=== PATIENT | male | born 1990 | race Caucasian/White ===

== ENCOUNTER 2019-10-31 15:31 | Outpatient (CLI) | payer OTHER ==
--- NOTE | 2019-11-03 09:47 | MRI Report ---
PROCEDURE: Arthrogram Ankle LT INDICATIONS: ATFL TEAR, PAIN IN LEFT ANKLE CONTRAST: Yes coronal and along the radial Prashant DOTSON and lesia 1175 TECHNIQUE: After the administration of 5 mL of dilute intra-articular Gadolinium contrast into the tibiotalar angi int, sagittal T1 spin echo with and without fat saturation, axial T1 fast spin echo with fat saturati on and T2 fast spin echo with fat saturation, coronal T1 spin echo and T2 fast spin echo with fat sat uration through the ankle. COMPARISON: None. FINDINGS: Image quality: Excellent. Bones and joints: No acute fracture. No suspicious osseous lesion of the midfoot or hindfoot bones is present. Within the medial tibiotalar joint, there are a pair of low signal intensity possible loose bodies me asuring up to 4 mm seen on image . This is also noted on image 18/701. No osteochondral defects. There is diffuse hindfoot and midfoot degenerative spurring and subchondral sclerosis Medial structures: Deltoid ligament intact. Spring ligament intact. Posterior tibialis intact Flexor digitorum longus intact Fluid is adjacent to the posterior tibialis and flexor digitorum longus tendons although fluid demons trates T1 shortening and be related to injection. Flexor hallucis longus intact Posterior tibial neurovascular bundle appears normal within the tarsal tunnel, without extrinsic mass effect. Lateral structures: Anterior talofibular ligament not well seen and presumably ruptured. Calcaneofibular ligament not well seen and may be ruptured. Posterior talofibular ligament intact. Anterior tibiofibular ligament intact. Posterior tibiofibular ligament intact. Peroneus longus normal Peroneus brevis normal. There is fluid surrounding the peroneal tendons, however demonstrates T1 shortening and may be relate d to the injection. Sinus tarsi demonstrates normal fatty signal. Anterior structures: Dorsal talonavicular ligament intact. Tibialis anterior normal Extensor hallucis longus normal. Extensor digitorum longus normal Posterior and plantar structures: Achilles tendon intact. The medial and lateral bands of the plantar fascia are within normal limits. IMPRESSION: Nonvisualized anterior talofibular and calcaneofibular ligaments which suggests rupture, technically age indeterminate, although probably chronic given the absence of adjacent soft tissue edema A pair of low signal suspected loose bodies measuring up to 4 mm within the medial tibiotalar joint s pace. Reviewed by: Prashant Chaudhry MD on 11/03/2019 9:46 AM PDT Approved by: Prashant Chaudhry MD on 11/03/2019 9:46 AM PDT Station ID: [id number]
--- NOTE | 2019-11-03 17:41 | XRAY Report ---
Reason: ATFL TEAR, PAIN IN LEFT ANKLE Procedure Date: 10/31/2019 Accession Number: [id number] / [id number] Procedure: [place] - Arthrogram Needle Placement CPT Code: Final Report FULL RESULT: PROCEDURE: Arthrogram Needle Placement INDICATIONS: ATFL TEAR, PAIN IN LEFT ANKLE CONTRAST: CONTRAST: 3cc Omnipague, FLUOROSCOPY TIME: FLUORO TIME: 10 sec and NUMBER IMAGES: 2 TECHNIQUE: After informed consent had been obtained, the ankle was examined fluoroscopically in the lateral projection, and a site for needle placement chosen for entry into the tibiotalar joint from an anterior approach. Care was taken to locate the dorsalis pedis artery beforehand. The skin was prepped and draped in the usual fashion, and 1% Xylocaine infiltrated from skin down to joint capsule. A hypodermic needle was inserted into the joint, and a small amount of iodinated contrast media injected to confirm intra-articular placement of the needle tip. This was followed by approximately 5 mL dilute solution of a gadolinium containing MR contrast agent. The needle was removed and a dressing was applied. The patient was given postprocedural instructions and sent to the MR suite for MR imaging. The attending radiologist was present during invasive portions of the procedure, and performed all intra-articular injections. FINDINGS: A single fluoroscopic spot image demonstrates intra-articular location of injected iodinated contrast. IMPRESSION: Successful fluoroscopically guided administration of dilute Gadolinium solution into the tibiotalar joint for MR arthrogram. Reviewed by: Frances Christiansen MD on 11/03/2019 5:40 PM PDT Approved by: Frances Christiansen MD on 11/03/2019 5:40 PM PDT Station ID: [id number]
== END 2019-10-31 15:32 | disposition home or self-care (01) ==
LOC: DI 15:31
DX: M25.572 Pain in left ankle and joints of left foot (principal)
CPT/HCPCS: 27648; 73722; 77002; A9585